=== PATIENT | female | born 1990 | race Caucasian/White ===

== ENCOUNTER 2018-06-14 14:25 | Emergency (ER) | payer SELFPAY ==
[2018-06-14] MEDS ORDERED: Dexamethasone 10 MG/ML VIAL ONE (16:22)
== END 2018-06-14 16:30 | disposition home or self-care (01) ==
LOC: ERS 14:25
DX: J03.90 Acute tonsillitis, unspecified (principal); F32.9 Major depressive disorder, single episode, unspecified; J45.909 Unspecified asthma, uncomplicated
CPT/HCPCS: 87081; 87430; 99283; J1100